=== PATIENT | female | born 1995 | race Caucasian/White ===

== ENCOUNTER 2021-03-26 12:52 | Emergency (ER) | payer MEDICAID ==
[~2021-03-26] VITALS: Ht 162.6 cm; Wt 46.0 kg
[2021-03-26] MEDS ORDERED: ACETAMINOPHEN 325MG TABLET PO ONE (15:00)
[2021-03-26] MEDS ORDERED: NAPR-681 MT (16:04)
[2021-03-26] MEDS ORDERED: PROM6.254 PO (16:04)
[2021-03-26 16:11] VITALS: BP 101/63
== END 2021-03-26 16:12 | disposition home or self-care (01) ==
LOC: ER 12:52
DX: J06.9 Acute upper respiratory infection, unspecified (principal); Z88.0 Allergy status to penicillin
CPT/HCPCS: 81025; 87070; 87430; 99283